=== PATIENT | male | born 1965 | race Caucasian/White ===

== ENCOUNTER 2017-11-19 17:59 | Inpatient (IN) ==
--- NOTE | 2017-11-19 19:25 | Emergency Department Note ---
Disposition Clinical Impression: Pneumonia Disposition: Transfer Short-Term Hosp Referrals: NONE,PCP [Primary Care Provider] - Forms: ED Satisfaction Letter Time of Disposition: 21:59 General Adult HPI - General Chief complaint: ED Upper Respiratory Infection Stated complaint: Upper respiratory Time Seen by Provider: 11/19/17 19:21 Source: patient Limitations: no limitations - History of Present Illness HPI Narrative: Patient presents today with CC of: Pneumonia not improving Patient describes issue began around little over a week ago the patient was seen here because of cough and pneumonia symptoms and was diagnosed with pneumonia started on Augmentin which he is taking and it does not seem to have helped very much he still coughing feeling hot and cold has not been eating well but he has been having some diarrhea. He denies any chest pain. He has not had any vomiting. Denies any earache but does have some nasal congestion. He has been eating but not very much. Had some rice over last 24 hours and has been drinking water he been urinating normally and not having any blood in his stool Pain Scale: 5 - Related Data Home Medications Medication Instructions Recorded Confirmed Metoprolol [Lopressor] 75 mg PO BID 07/25/16 11/19/17 Ipratropium/Albuterol Neb [Duoneb] 3 ml IH Q4H PRN 07/26/16 11/19/17 Atorvastatin [Lipitor] 80 mg PO HS 11/11/17 11/19/17 Previous Rx's Medication Instructions Recorded Fluticasone/Salmeterol [Advair 1 each IH BID #1 blst.w.dev 01/09/15 500-50 Diskus] Albuterol Sulfate [Ventolin Hfa] 8 gm IH Q4-6H PRN #1 hfa.aer.ad 11/28/16 Amoxicillin/Clavulanate [Augmentin] 875 mg PO BIDWM #20 tablet 11/11/17 HYDROcodone BIT/Homatropine LQ 5 mg PO Q6H PRN 3 Days #118 syrup 11/11/17 [Hycodan Syrup] Allergies Allergy/AdvReac Type Severity Reaction Status Date / Time moxifloxacin [From Avelox] Allergy Anaphylaxis Verified 11/19/17 18:32 All systems ED: reviewed and negative except as stated. Review of Systems: As Per HPI Past Medical History - Past Medical History Medical history: Reports: arthritis, asthma, COPD, GERD, hyperlipidemia, hypertension, myocardial infarction Surgical history: Reports: herniorrhaphy, other (Tonsillectomy-adenoidectomy.) Psychiatric history: Reports: anxiety, panic disorder, other - Social History Smoking Status: Current every day smoker Smokeless Tobacco Status: No Alcohol use: Reports: occasionally Drug use: Reports: none Physical Exam I have reviewed initial and available nurse's notes for the patient. The patient 's medications, allergies, and medical history was reviewed. Family, Social & Surg histories were reviewed and are not relevant except as noted above in the history of present illness, or below in the respective specific section. I have reviewed and agree with all vital signs synchronously available in EMR at the time of this dictation. Times documented are the time of computer entry, are not necessarily the time the event occurred. At least 10 systems reviewed with patient or surrogate during physical exam and are otherwise negative. Physical EXAM: General ~ Constitutional: Conscious & cooperative , generally healthy appearance Head: NCAT Eyes: Sclera white , conjunctiva clear , PERRL, non-icteric ENT : L Tympanic membrane normal color and landmarks , translucent R Tympanic membrane normal color and landmarks, translucent Canals are clear without significant drainage , no obstruction or vesicles , pinna and tragus non tender Nose with pink nasal mucosa that is slightly hyperemic with some mucoid discharge present, nares patent, non tender without bleeding Mouth - mucous membrane moist , pink , no lesions , no trismus Neck - no masses , supple , no cervical spinous process tenderness Pharynx - no exudate , no petechia or obvious lesions , no airway obstruction or stridor, some posterior nasal drainage present Hematologic ~ Lymphatic ~ Immunologic: Lymphadenopathy normal , no petechia , Skin color, nails and pulses unremarkable. Heart ~ Chest: Reg rate , nml Rhythm , nl S1/S2 , no MRG Lungs: Breath sounds equal , clear to auscultation bilaterally rhonchi right upper lobe , no rales , no CVA tenderness, speaks in full sentences Gastrointestinal ~ Abd: Soft & non tender , BS + in 4 quads , No HSM or masses , no peritoneal signs GenitoUrinary: Deferred Musculoskeletal ~ Back ~ Extremities: Warm and w/o clubbing , cyanosis , or edema. No point tenderness , good ROM of major joints Neurologic: Cranial nerves grossly intact, good muscle strength , attention good , cooperative , Alert and oriented x4 Psychiatric: Calm , Insight and mood appropriate , Skin: No rashes , good skin turgor , cap refill 2-3 seconds , warm and dry - General Limitations: no limitations General appearance: alert, in no apparent distress Course Vital Signs Temperature 98.3 F 11/19/17 18:28 Pulse Rate 101 11/19/17 18:28 Respiratory Rate 16 11/19/17 18:28 Blood Pressure 133/85 11/19/17 18:28 O2 Sat by Pulse Oximetry 94 11/19/17 18:28 Temperature 98.3 F 11/19/17 18:28 Pulse Rate 101 11/19/17 18:28 Respiratory Rate 16 11/19/17 18:28 Blood Pressure 133/85 11/19/17 18:28 O2 Sat by Pulse Oximetry 94 11/19/17 18:28 Oxygen Delivery Oxygen Delivery Room Air Medical Decision Making - MDM Narrative Medical decision making narrative: MDM: History and physical exam is consistent with - pneumonia, hypokalemia, dehydration DDx included multiple etiologies for the symptoms such as - pneumonia, atypical CP, bronchitis COPD, ACS, Pneumonia, pneumothorax, Gerd, AAA, PE XRAYS: Right upper lobe pneumonia with progressive consolidation throughout the lung. Critical Care: None Condition and evaluation here was discussed in detail. Labwork, and test results were reviewed with the patient. Patient states he had previously had pneumonia while ago and did well on levofloxacin in spite of the fact the he did have a allergy to moxifloxacin. Patient was also found to be hypokalemic and dehydration. He was not having any specific shortness of breath is felt that he was not getting significantly better and was having coughing. His lactate was normal but his white cell count was moderately elevated I discussed with the patient staying in the hospital getting breathing treatments and observation overnight with IV fluids and he was agreeable to this. - Lab Data Result diagrams: 11/19/17 19:43 11/19/17 19:43 Lab Results 11/19/17 11/19/17 11/19/17 Range/Units 19:43 19:43 20:50 WBC 25.8 H (4.3-11.1) K/mcL RBC 4.50 (4.19-5.50) M/mcL Hgb 12.6 L (12.9-16.9) g/dL Hct 36.1 L (37.5-50.1) % MCV 80.2 L (83.0-100.0) fL MCH 28.0 (28.0-33.3) pg MCHC 34.9 (31.6-35.5) g/dL RDW 13.3 (11.5-14.5) % Plt Count 336 (140-400) K/mcL MPV 9.8 (9.4-12.4) fL Immature Gran % 1.4 (0-4) % Seg Neutrophils % 90.3 % Lymphocytes % 3.8 % Monocytes % 4.2 % Eosinophils % 0.1 % Basophils % 0.2 % Neutrophils # 23.3 H (1.6-8.9) K/mcL Lymphocytes # 1.0 (0.6-4.6) K/mcL Monocytes # 1.1 (0.0-1.3) K/mcL Eosinophils # 0.0 (0.0-0.6) K/mcL Basophils # 0.1 (0.0-0.2) K/mcL Platelet Estimate Normal (Normal) ABG pH (7.32-7.45) pH Units ABG pCO2 (35-45) mmHg ABG pO2 (85-104) mmHg ABG HCO3 (21-27) mEq/L ABG Total CO2 (20-26) mEq/L ABG O2 Saturation (95-98) % ABG Base Excess (-2 to 3) mEq/L Sodium 127 L (136-145) mEq/L Potassium 2.9 L (3.5-5.1) mEq/L Chloride 85 L (98-107) mEq/L Carbon Dioxide 31 H (23-29) mEq/L BUN 15 (6-20) mg/dL Creatinine 1.00 (0.70-1.30) mg/dL Est GFR ( Amer) > 60 (> 60) Est GFR (Non-Af Amer) > 60 (> 60) BUN/Creatinine Ratio 15 (6-26) Glucose 121 H (70-105) mg/dL Calculated Osmolality 266 L (280-300) Lactic Acid 1.4 (0.5-2.2) mmol/L Calcium 9.2 (8.6-10.3) mg/dL 11/19/17 Range/Units 20:53 WBC (4.3-11.1) K/mcL RBC (4.19-5.50) M/mcL Hgb (12.9-16.9) g/dL Hct (37.5-50.1) % MCV (83.0-100.0) fL MCH (28.0-33.3) pg MCHC (31.6-35.5) g/dL RDW (11.5-14.5) % Plt Count (140-400) K/mcL MPV (9.4-12.4) fL Immature Gran % (0-4) % Seg Neutrophils % % Lymphocytes % % Monocytes % % Eosinophils % % Basophils % % Neutrophils # (1.6-8.9) K/mcL Lymphocytes # (0.6-4.6) K/mcL Monocytes # (0.0-1.3) K/mcL Eosinophils # (0.0-0.6) K/mcL Basophils # (0.0-0.2) K/mcL Platelet Estimate (Normal) ABG pH 7.55 H (7.32-7.45) pH Units ABG pCO2 33 L (35-45) mmHg ABG pO2 63 L (85-104) mmHg ABG HCO3 29 H (21-27) mEq/L ABG Total CO2 30 H (20-26) mEq/L ABG O2 Saturation 94 L (95-98) % ABG Base Excess 6 H (-2 to 3) mEq/L Sodium (136-145) mEq/L Potassium (3.5-5.1) mEq/L Chloride (98-107) mEq/L Carbon Dioxide (23-29) mEq/L BUN (6-20) mg/dL Creatinine (0.70-1.30) mg/dL Est GFR ( Amer) (> 60) Est GFR (Non-Af Amer) (> 60) BUN/Creatinine Ratio (6-26) Glucose (70-105) mg/dL Calculated Osmolality (280-300) Lactic Acid (0.5-2.2) mmol/L Calcium (8.6-10.3) mg/dL
[2017-11-19 20:11] LABS: Basophils # 0.1 K/mcL (0.0-0.2); Basophils % 0.2 %; Eosinophils % 0.1 %; Hematocrit 36.1 % (37.5-50.1); Hemoglobin 12.6 g/dL (12.9-16.9); Immature Granulocytes % 1.4 % (0-4); Lymphocytes % 3.8 %; Mean Corpuscular HGB Conc 34.9 g/dL (31.6-35.5); Mean Corpuscular Volume 80.2 fL (83.0-100.0); Mean Platelet Volume 9.8 fL (9.4-12.4); Monocytes # 1.1 K/mcL (0.0-1.3); Monocytes % 4.2 %; Neutrophils # 23.3 K/mcL (1.6-8.9); Platelet Count 336 K/mcL (140-400); Red Cell Distribution Width 13.3 % (11.5-14.5); Segmented Neutrophils % 90.3 %
[2017-11-19 20:26] LABS: BUN/Creatinine Ratio 15 (6-26); Blood Urea Nitrogen 15 mg/dL (6-20); Calcium 9.2 mg/dL (8.6-10.3); Carbon Dioxide 31 mEq/L (23-29); Chloride 85 mEq/L (98-107); Glucose 121 mg/dL (70-105); Osmolality,Calculated 266 (280-300); Potassium 2.9 mEq/L (3.5-5.1); Sodium 127 mEq/L (136-145); eGFR For Non-African Americans > 60 (> 60)
[2017-11-19 20:28] LABS: Platelet Estimate Normal (Normal)
[2017-11-19] MEDS ORDERED: Levofloxacin 750 MG/150 ML 750 MG/150 ML BAG IVPB ONE (20:31)
[2017-11-19 20:58] LABS: ABG Base Excess 6 mEq/L (-2 to 3); ABG HCO3 29 mEq/L (21-27); ABG Oxygen Saturation 94 % (95-98); ABG PCO2 33 mmHg (35-45); ABG PH 7.55 pH Units (7.32-7.45); ABG PO2 63 mmHg (85-104); ABG TCO2 30 mEq/L (20-26)
[2017-11-19] MEDS ORDERED: Potassium Citrate 10 MEQ TABLET.ER PO ONE (21:14)
[2017-11-19] MEDS ORDERED: Ipratropium/Albuterol Neb 3 ML IH ONE (21:51)
[2017-11-19] MEDS ORDERED: Naloxone 0.4 MG/ML INJ IVP PRN (22:25)
[2017-11-19] MEDS: 0.9 % Sodium Chloride 1,000 ML IVC SCH (22:37)
[2017-11-19] MEDS: Ipratropium/Albuterol Neb 3 ML IH SCH (22:38)
[2017-11-20] MEDS ORDERED: *HR* HYDROcodone/Acet 5/325 mg TABLET PO ONE (02:21)
[2017-11-20] MEDS: Ipratropium/Albuterol Neb 3 ML IH SCH ×5 (04:11→21:20)
[2017-11-20 04:40] LABS: Basophils % 0.2 %; Eosinophils % 0.1 %; Hemoglobin 12.2 g/dL (12.9-16.9); Immature Granulocytes % 0.7 % (0-4); Lymphocytes # 0.9 K/mcL (0.6-4.6); Lymphocytes % 5.2 %; Mean Corpuscular HGB Conc 34.9 g/dL (31.6-35.5); Mean Corpuscular Hemoglobin 27.8 pg (28.0-33.3); Mean Corpuscular Volume 79.7 fL (83.0-100.0); Mean Platelet Volume 9.5 fL (9.4-12.4); Monocytes # 0.9 K/mcL (0.0-1.3); Monocytes % 5.4 %; Neutrophils # 14.7 K/mcL (1.6-8.9); Platelet Count 325 K/mcL (140-400); Red Blood Count 4.39 M/mcL (4.19-5.50); Red Cell Distribution Width 13.4 % (11.5-14.5); Segmented Neutrophils % 88.4 %
[2017-11-20 04:55] LABS: BUN/Creatinine Ratio 15 (6-26); Blood Urea Nitrogen 11 mg/dL (6-20); Calcium 8.8 mg/dL (8.6-10.3); Carbon Dioxide 31 mEq/L (23-29); Chloride 89 mEq/L (98-107); Glucose 109 mg/dL (70-105); Osmolality,Calculated 266 (280-300); Potassium 3.2 mEq/L (3.5-5.1); Sodium 128 mEq/L (136-145); eGFR For Non-African Americans > 60 (> 60)
[2017-11-20] MEDS: 0.9 % Sodium Chloride 1,000 ML IVC SCH (05:18)
[2017-11-20] MEDS: Budesonide/Formoterol 160/4.5 1 PUFF INH IH SCH ×2 (10:18→21:20)
[2017-11-20] MEDS ORDERED: Isovue-370 500 ML INFUS..BTL IV ONE (12:20)
--- NOTE | 2017-11-20 12:29 | Internal Med History&Physical ---
Date of Encounter: 11/20/17 Time of Encounter: 12:26 Assessment and Plan (1) Pneumonia Current visit: Yes Status: Acute continue IV atb. CT of chest for c/o pain. norco prn ordered. repeat CBC in am. WBC 16.6 today. Continue inhaled breathing treatments. Qualifiers: Pneumonia type: due to unspecified organism Laterality: right Lung location: upper lobe of lung Qualified Code(s): J18.1 - Lobar pneumonia, unspecified organism (2) Hypertension Current visit: Yes Status: Acute Controlled with current medications. Will continue. Qualifiers: Hypertension type: essential hypertension Qualified Code(s): I10 - Essential (primary) hypertension Internal Medicine - H&P: HPI Admitted From: Emergency Dept Plans for Post Hospital Care: Home History of present illness: Mr. Marvin is a 52 year old male presented to the emergency room with a one- week history of cough. Was treated with Augmentin for recent pneumonia. Did not feel like he was getting better. Reports occasional diarrhea, nasal congestion and decreased appetite. Denies fever, chills, nausea or vomiting. States he is having occasional slight pain in right chest area when he is coughing. Chest x-ray shows right upper lobe pneumonia. Was given a dose of Levaquin IV in the emergency room. Will continue. Will order Evans 5 mg every 4 hours as needed for pain. Discussed with patient we would do this for the next 1 to 2 days. Past Med Surg Social Fam HX - Past Medical History Medical history: arthritis, asthma, COPD, GERD, hyperlipidemia, hypertension, myocardial infarction Psychiatric history: anxiety, panic disorder, other - Past Surgical History Surgical History: herniorrhaphy, other Additional surgical history: heart cath (No stents) - Social History Smoking Status: Current every day smoker Packs per day: 1 Smokeless Tobacco Status: No Alcohol use: occasionally Drug use: none - Family History Daughter Adopted: [place]: sohan Jones Age: 28 Family Member Ethnicity: Non- Living Status: Still Living Hx Family Cardiac Disorders: Yes Hx Family Respiratory Disorders: Yes Hx Family Cancer: No Hx Family GI Disorders: No Hx Family Genitourinary Disorders: No Hx Family Endocrine Disorder: No Hx Family Musculoskeletal Disorders: No Hx Family Neuromuscular Disorders: No Hx Family Neurologic Disorders: No Hx Family HEENT Disorders: No Hx Family Autoimmune Disorders: No Hx Family Reproductive Disorders: No Hx Family Psychosocial Disorders: No Hx Family Medical Disorders: No Internal Medicine - H&P: Meds Fluticasone/Salmeterol [Advair 500-50 Diskus] 1 each IH BID #1 blst.w.dev [Rx] Metoprolol [Lopressor] 75 mg PO BID 07/25/16 [History] Ipratropium/Albuterol Neb [Duoneb] 3 ml IH Q4H PRN 07/26/16 [History] Albuterol Sulfate [Ventolin Hfa] 8 gm IH Q4-6H PRN #1 hfa.aer.ad 11/28/16 [Rx] Amoxicillin/Clavulanate [Augmentin] 875 mg PO BIDWM #20 tablet 11/11/17 [Rx] Atorvastatin [Lipitor] 80 mg PO HS 11/11/17 [History] HYDROcodone BIT/Homatropine LQ [Hycodan Syrup] 5 mg PO Q6H PRN 3 Days #118 syrup 11/11/17 [Rx] 3 Allergy/AdvReac Type Severity Reaction Status Date / Time moxifloxacin [From Avelox] Allergy Anaphylaxis Verified 11/19/17 18:32 All Systems PM: A 10-system review of systems was performed and is negative for pertinent findings except as documented above in the HPI. - Constitutional Constitutional: no chills, no fever(s), no night sweats - EENT Eyes: no change in vision, no discharge, no pain, no photophobia Ears: no ear discharge, no ear pain, no tinnitus Nose, mouth and throat: no dysphagia, no nasal discharge, no neck pain, no sore throat - Cardiovascular Cardiovascular ROS IM: no chest pain, no diaphoresis, no dyspnea, no lightheadedness, no palpitations, no syncope - Respiratory Respiratory: cough, pain with cough, no dyspnea, no wheezing, no excessive phlegm production - Gastrointestinal Gastrointestinal: no abdominal pain, no diarrhea, no hematemesis, no hematochezia, no melena, no nausea, no vomiting - Musculoskeletal Musculoskeletal ROS IM: no numbness, no tingling - Integumentary Integumentary IM: no rash, no unusual bruising - Neurological Neurological ROS: no confusion, no convulsions, no focal weakness, no numbness, no tingling, no tremor(s) - Hematologic/Lymphatic Hematologic/Lymphatic: no easy bruising - Constitutional Vitals: Temp Pulse Resp BP Pulse Ox 98.9 F 103 18 127/82 93 11/20/17 11:25 11/20/17 11:25 11/20/17 11:25 11/20/17 11:25 11/20/17 11:25 General appearance: Present: A&O X 3, pleasant, no acute distress, answers questions appropriately - Head Head exam: Present: atraumatic, normocephalic - Eye Eye exam: Present: PERRL, conjuntiva pink, sclera anicteric Pupils: Present: PERRL - Neck Neck exam general surgery: Present: supple, trachea midline. Absent: lymphadenopathy - Respiratory Respiratory exam: Present: rales. Absent: accessory muscle use, rhonchi, wheezes Additional comments: RUL crackles. - Cardiovascular Cardiovascular exam: Present: RRR, +S1, +S2. Absent: diastolic murmur, gallop, rubs, systolic murmur - GI/Abdominal GI/Abdominal exam: Present: normal bowel sounds, soft, no peritoneal signs. Absent: distended, tenderness - Extremities Exam Extremities exam: Present: warm, radial pulses palpable and symmetrical. Absent : calf tenderness, cyanotic, pedal edema - Neurological Exam Neurological exam: Present: CN II-XII intact, oriented X3, no focal deficits. Absent: pronater drift, facial droop, speech deficit - Skin Skin exam: Present: dry, intact Internal Med - H&P Results - Labs CBC & Chem 7: 11/20/17 04:34 11/20/17 04:34 Labs: Short CBC 11/20/17 Range/Units 04:34 WBC 16.6 H (4.3-11.1) K/mcL Hgb 12.2 L (12.9-16.9) g/dL Hct 35.0 L (37.5-50.1) % Plt Count 325 (140-400) K/mcL Neutrophils # 14.7 H (1.6-8.9) K/mcL BMP 11/20/17 04:34 Sodium 128 L Potassium 3.2 L Chloride 89 L Carbon Dioxide 31 H BUN 11 Creatinine 0.73 Glucose 109 H Calcium 8.8 - Impressions ITS Impressions Chest X-Ray 08/26/18 06:00 IMPRESSION: Unchanged relatively dense opacification of the right upper lobe. D/ / Alden Chambers MD / Alden Chambers MD Interpreting Provider: Alden Chambers MD
[2017-11-20] MEDS: Levofloxacin 750 MG/150 ML 750 MG/150 ML BAG IVPB SCH (13:13)
[2017-11-20] MEDS: *HR* HYDROcodone/Acet 5/325 mg TABLET PO PRN ×2 (13:16→21:26)
[2017-11-20] MEDS: *HR* Heparin 5,000 UNIT/ML VIAL SQ SCH (17:37)
[2017-11-21] MEDS: *HR* HYDROcodone/Acet 5/325 mg TABLET PO PRN ×5 (01:38→22:30)
[2017-11-21] MEDS: Albuterol 2.5 MG/3 ML NEBULIZER IH PRN ×3 (01:40→14:00)
[2017-11-21] MEDS: Ipratropium/Albuterol Neb 3 ML IH SCH ×4 (04:30→22:30)
[2017-11-21] MEDS: *HR* Heparin 5,000 UNIT/ML VIAL SQ SCH ×2 (05:37→18:27)
[2017-11-21 05:59] LABS: Basophils % 0.2 %; Eosinophils % 0.1 %; Hematocrit 33.1 % (37.5-50.1); Hemoglobin 11.2 g/dL (12.9-16.9); Immature Granulocytes % 0.9 % (0-4); Lymphocytes # 1.1 K/mcL (0.6-4.6); Mean Corpuscular HGB Conc 33.8 g/dL (31.6-35.5); Mean Corpuscular Hemoglobin 27.3 pg (28.0-33.3); Mean Corpuscular Volume 80.7 fL (83.0-100.0); Mean Platelet Volume 9.7 fL (9.4-12.4); Monocytes % 6.8 %; Neutrophils # 11.7 K/mcL (1.6-8.9); Platelet Count 357 K/mcL (140-400); Red Cell Distribution Width 13.9 % (11.5-14.5)
[2017-11-21 06:14] LABS: BUN/Creatinine Ratio 12 (6-26); Blood Urea Nitrogen 9 mg/dL (6-20); Calcium 8.8 mg/dL (8.6-10.3); Carbon Dioxide 33 mEq/L (23-29); Chloride 91 mEq/L (98-107); Glucose 105 mg/dL (70-105); Osmolality,Calculated 271 (280-300); Potassium 3.3 mEq/L (3.5-5.1); Sodium 131 mEq/L (136-145); eGFR For Non-African Americans > 60 (> 60)
[2017-11-21] MEDS: Levofloxacin 750 MG/150 ML 750 MG/150 ML BAG IVPB SCH (07:50)
[2017-11-21] MEDS: Budesonide/Formoterol 160/4.5 1 PUFF INH IH SCH ×2 (09:44→22:30)
--- NOTE | 2017-11-21 11:51 | Internal Med Progress Note ---
Date of Encounter: 11/21/17 Time of Encounter: 11:48 - Assessment and plan (1) Pneumonia Current Visit: Yes Status: Acute Assessment and plan: continue IV Levaquin and inhaled breathing treatments. improving. Qualifiers: Pneumonia type: due to unspecified organism Laterality: right Lung location: upper lobe of lung Qualified Code(s): J18.1 - Lobar pneumonia, unspecified organism (2) Hypertension Current Visit: Yes Status: Acute Assessment and plan: controlled with current meds. monitor BP Qualifiers: Hypertension type: essential hypertension Qualified Code(s): I10 - Essential (primary) hypertension (3) COPD (chronic obstructive pulmonary disease) Current Visit: Yes Status: Acute Assessment and plan: continue inhaled meds. discussed smoking cessation. Qualifiers: COPD type: chronic bronchitis Chronic bronchitis type: unspecified Qualified Code(s): J42 - Unspecified chronic bronchitis (4) Nicotine addiction Current Visit: Yes Status: Chronic Assessment and plan: discussed smoking cessation. Qualifiers: Nicotine product type: cigarettes Substance use status: unspecified nicotine-induced disorder Qualified Code(s): F17.219 - Nicotine dependence, cigarettes, with unspecified nicotine-induced disorders - Time Spent With Patient less than 15 minutes - Subjective Interval history: resting in bed, states feeling "much beter". starting to cough up phlegm. denies SOB, chest pain, fever, chills, NVD. receiving IV atb. - Constitutional Vitals: Temp Pulse Resp BP Pulse Ox 99.2 F 95 18 120/81 94 11/21/17 11:03 11/21/17 11:03 11/21/17 11:03 11/21/17 11:03 11/21/17 11:03 General appearance: Present: A&O X 3, pleasant, no acute distress, answers questions appropriately - Head Head exam: Present: atraumatic, normocephalic - Eye Eye exam: Present: PERRL, conjuntiva pink, sclera anicteric Pupils: Present: PERRL - Neck Neck exam general surgery: Present: supple, trachea midline. Absent: lymphadenopathy - Respiratory Respiratory exam: Present: rales. Absent: accessory muscle use, rhonchi, wheezes Additional comments: crackles and wheezing to bilat upper lobes and RLL. - Cardiovascular Cardiovascular exam: Present: RRR, +S1, +S2. Absent: diastolic murmur, gallop, rubs, systolic murmur - GI/Abdominal GI/Abdominal exam: Present: normal bowel sounds, soft, no peritoneal signs. Absent: distended, tenderness - Extremities Exam Extremities exam: Present: warm, radial pulses palpable and symmetrical. Absent : calf tenderness, cyanotic, pedal edema - Neurological Exam Neurological exam: Present: CN II-XII intact, oriented X3, no focal deficits. Absent: pronater drift, facial droop, speech deficit - Skin Skin exam: Present: dry, intact Internal Medicine: Result - Labs CBC & Chem 7: 11/21/17 05:40 11/21/17 05:40 Labs: Short CBC 11/21/17 Range/Units 05:40 WBC 13.9 H (4.3-11.1) K/mcL Hgb 11.2 L (12.9-16.9) g/dL Hct 33.1 L (37.5-50.1) % Plt Count 357 (140-400) K/mcL Neutrophils # 11.7 H (1.6-8.9) K/mcL BMP 11/21/17 05:40 Sodium 131 L Potassium 3.3 L Chloride 91 L Carbon Dioxide 33 H BUN 9 Creatinine 0.74 Glucose 105 Calcium 8.8 - ABG Interpretation ABG results: ABG ABG pH 7.55 pH Units (7.32-7.45) H 11/19/17 20:53 ABG pCO2 33 mmHg (35-45) L 11/19/17 20:53 ABG pO2 63 mmHg (85-104) L 11/19/17 20:53 ABG O2 Saturation 94 % (95-98) L 11/19/17 20:53 - Impressions Impressions Chest CT 11/20/17 12:20 IMPRESSION: 1. Right upper lobe pneumonia. 2. Reactive mediastinal and right hilar lymphadenopathy. 3. Underlying centrilobular emphysema. D/ / Jarett Muhammad MD / Jarett Muhammad MD Interpreting Provider: Jarett Muhammad MD Consult Discharge Plan - Plan Referrals: NONE,PCP [Primary Care Provider] -
[2017-11-22] MEDS: Albuterol 2.5 MG/3 ML NEBULIZER IH PRN ×2 (02:38→14:16)
[2017-11-22] MEDS: *HR* HYDROcodone/Acet 5/325 mg TABLET PO PRN ×4 (02:39→20:56)
[2017-11-22] MEDS: Ipratropium/Albuterol Neb 3 ML IH SCH ×4 (04:53→20:59)
[2017-11-22] MEDS: *HR* Heparin 5,000 UNIT/ML VIAL SQ SCH ×2 (04:53→18:06)
[2017-11-22] MEDS: Levofloxacin 750 MG/150 ML 750 MG/150 ML BAG IVPB SCH (08:36)
[2017-11-22] MEDS: Budesonide/Formoterol 160/4.5 1 PUFF INH IH SCH ×2 (08:41→20:59)
[2017-11-22 09:29] LABS: Basophils % 0.3 %; Eosinophils % 0.2 %; Hematocrit 32.6 % (37.5-50.1); Hemoglobin 11.2 g/dL (12.9-16.9); Immature Granulocytes % 0.9 % (0-4); Lymphocytes # 1.1 K/mcL (0.6-4.6); Lymphocytes % 10.3 %; Mean Corpuscular HGB Conc 34.4 g/dL (31.6-35.5); Mean Corpuscular Hemoglobin 27.7 pg (28.0-33.3); Mean Corpuscular Volume 80.7 fL (83.0-100.0); Mean Platelet Volume 9.6 fL (9.4-12.4); Monocytes # 0.9 K/mcL (0.0-1.3); Monocytes % 8.3 %; Neutrophils # 8.4 K/mcL (1.6-8.9); Platelet Count 422 K/mcL (140-400); Red Blood Count 4.04 M/mcL (4.19-5.50); Red Cell Distribution Width 13.7 % (11.5-14.5)
[2017-11-22 09:41] LABS: BUN/Creatinine Ratio 14 (6-26); Blood Urea Nitrogen 9 mg/dL (6-20); Calcium 8.5 mg/dL (8.6-10.3); Carbon Dioxide 27 mEq/L (23-29); Chloride 91 mEq/L (98-107); Glucose 113 mg/dL (70-105); Osmolality,Calculated 261 (280-300); Potassium 3.8 mEq/L (3.5-5.1); Sodium 126 mEq/L (136-145); eGFR For Non-African Americans > 60 (> 60)
--- NOTE | 2017-11-22 10:27 | Internal Med Progress Note ---
Date of Encounter: 11/22/17 Time of Encounter: 10:25 - Assessment and plan (1) Pneumonia Current Visit: Yes Status: Acute Assessment and plan: continue IV Levaquin and inhaled breathing treatments. started having fevers yesterday. blood cultures pending. will add doxycycline. WBC in normal range today. Qualifiers: Pneumonia type: due to unspecified organism Laterality: right Lung location: upper lobe of lung Qualified Code(s): J18.1 - Lobar pneumonia, unspecified organism (2) Hypertension Current Visit: Yes Status: Acute Assessment and plan: controlled with current meds. monitor BP Qualifiers: Hypertension type: essential hypertension Qualified Code(s): I10 - Essential (primary) hypertension (3) COPD (chronic obstructive pulmonary disease) Current Visit: Yes Status: Acute Assessment and plan: continue inhaled meds. discussed smoking cessation. Qualifiers: COPD type: chronic bronchitis Chronic bronchitis type: unspecified Qualified Code(s): J42 - Unspecified chronic bronchitis (4) Nicotine addiction Current Visit: Yes Status: Chronic Assessment and plan: discussed smoking cessation. continue nicotine patch Qualifiers: Nicotine product type: cigarettes Substance use status: unspecified nicotine-induced disorder Qualified Code(s): F17.219 - Nicotine dependence, cigarettes, with unspecified nicotine-induced disorders - Time Spent With Patient 25 - 35 minutes - Subjective Interval history: Resting in bed, states he was able to eat entire breakfast. Having fever since yesterday. Fever relieved with Tylenol. States he is coughing up yellow phlegm. Denies shortness of breath or chest pain. Discussed adding doxycycline. Will continue Levaquin. - Constitutional Vitals: Temp Pulse Resp BP Pulse Ox 100.4 F H 106 20 131/79 94 11/22/17 07:02 11/22/17 07:02 11/22/17 07:02 11/22/17 07:02 11/22/17 09:46 General appearance: Present: A&O X 3, pleasant, no acute distress, answers questions appropriately - Head Head exam: Present: atraumatic, normocephalic - Eye Eye exam: Present: PERRL, conjuntiva pink, sclera anicteric Pupils: Present: PERRL - Neck Neck exam general surgery: Present: supple, trachea midline. Absent: lymphadenopathy - Respiratory Respiratory exam: Present: CTAB, rales, wheezes. Absent: accessory muscle use, rhonchi Additional comments: Crackles scattered to right upper and lower lobe, with occasional expiratory wheeze. Expiratory faint wheezing left upper lobe - Cardiovascular Cardiovascular exam: Present: RRR, +S1, +S2. Absent: diastolic murmur, gallop, rubs, systolic murmur - GI/Abdominal GI/Abdominal exam: Present: normal bowel sounds, soft, no peritoneal signs. Absent: distended, tenderness - Extremities Exam Extremities exam: Present: warm, radial pulses palpable and symmetrical. Absent : calf tenderness, cyanotic, pedal edema - Neurological Exam Neurological exam: Present: CN II-XII intact, oriented X3, no focal deficits. Absent: pronater drift, facial droop, speech deficit - Skin Skin exam: Present: dry, intact Internal Medicine: Result - Labs CBC & Chem 7: 11/22/17 09:07 11/22/17 09:07 Labs: Short CBC 11/22/17 Range/Units 09:07 WBC 10.6 (4.3-11.1) K/mcL Hgb 11.2 L (12.9-16.9) g/dL Hct 32.6 L (37.5-50.1) % Plt Count 422 H (140-400) K/mcL Neutrophils # 8.4 (1.6-8.9) K/mcL BMP 11/22/17 09:07 Sodium 126 L Potassium 3.8 Chloride 91 L Carbon Dioxide 27 BUN 9 Creatinine 0.66 L Glucose 113 H Calcium 8.5 L - ABG Interpretation ABG results: ABG ABG pH 7.55 pH Units (7.32-7.45) H 11/19/17 20:53 ABG pCO2 33 mmHg (35-45) L 11/19/17 20:53 ABG pO2 63 mmHg (85-104) L 11/19/17 20:53 ABG O2 Saturation 94 % (95-98) L 11/19/17 20:53 - VTE Documentation of Mechanical Device: Venous foot pump, device Consult Discharge Plan - Plan Referrals: NONE,PCP [Primary Care Provider] -
[2017-11-22] MEDS: Doxycycline 100 MG CAPSULE PO SCH ×2 (10:53→20:57)
[2017-11-22] MEDS: Nicotine 14 MG PATCH.TD24 TD SCH (11:50)
[2017-11-22] MEDS: HYDROcodone BIT/Homatropine LQ 5 MG/5 ML UDC PO PRN (18:06)
[2017-11-23] MEDS: HYDROcodone BIT/Homatropine LQ 5 MG/5 ML UDC PO PRN ×2 (00:58→20:07)
[2017-11-23] MEDS: *HR* HYDROcodone/Acet 5/325 mg TABLET PO PRN ×4 (00:58→20:06)
[2017-11-23] MEDS: Albuterol 2.5 MG/3 ML NEBULIZER IH PRN ×2 (00:58→18:53)
[2017-11-23] MEDS: Ipratropium/Albuterol Neb 3 ML IH SCH ×4 (05:20→22:11)
[2017-11-23] MEDS: *HR* Heparin 5,000 UNIT/ML VIAL SQ SCH ×2 (05:20→16:57)
[2017-11-23] MEDS: Budesonide/Formoterol 160/4.5 1 PUFF INH IH SCH ×2 (08:08→22:12)
[2017-11-23] MEDS: Nicotine 14 MG PATCH.TD24 TD SCH (08:56)
[2017-11-23] MEDS: Doxycycline 100 MG CAPSULE PO SCH ×2 (08:56→20:05)
[2017-11-23] MEDS: Levofloxacin 750 MG/150 ML 750 MG/150 ML BAG IVPB SCH (08:58)
--- NOTE | 2017-11-23 15:24 | Internal Med Progress Note ---
Date of Encounter: 11/23/17 Time of Encounter: 15:21 - Assessment and plan (1) Pneumonia Current Visit: Yes Status: Acute Assessment and plan: continue IV Levaquin, doxycycline and inhaled breathing treatments. Will repeat chest x-ray. Qualifiers: Pneumonia type: due to unspecified organism Laterality: right Lung location: upper lobe of lung Qualified Code(s): J18.1 - Lobar pneumonia, unspecified organism (2) Hypertension Current Visit: Yes Status: Acute Assessment and plan: controlled with current meds. monitor BP Qualifiers: Hypertension type: essential hypertension Qualified Code(s): I10 - Essential (primary) hypertension (3) COPD (chronic obstructive pulmonary disease) Current Visit: Yes Status: Acute Assessment and plan: continue inhaled meds. discussed smoking cessation. Qualifiers: COPD type: chronic bronchitis Chronic bronchitis type: unspecified Qualified Code(s): J42 - Unspecified chronic bronchitis (4) Nicotine addiction Current Visit: Yes Status: Chronic Assessment and plan: discussed smoking cessation. continue nicotine patch Qualifiers: Nicotine product type: cigarettes Substance use status: unspecified nicotine-induced disorder Qualified Code(s): F17.219 - Nicotine dependence, cigarettes, with unspecified nicotine-induced disorders - Time Spent With Patient less than 15 minutes - Subjective Interval history: Ambulating in hallway without shortness of breath. Continues to have low-grade fever. Fever relieved with Tylenol. States he is coughing up yellow phlegm. Denies shortness of breath or chest pain. Will repeat chest x-ray. Currently taking doxycycline and Levaquin. Maintaining appetite and hydration. - Constitutional Vitals: Temp Pulse Resp BP Pulse Ox 99.6 F 53 16 110/72 91 11/23/17 10:16 11/23/17 10:16 11/23/17 10:16 11/23/17 10:16 11/23/17 10:16 General appearance: Present: A&O X 3, pleasant, no acute distress, answers questions appropriately - Head Head exam: Present: atraumatic, normocephalic - Eye Eye exam: Present: PERRL, conjuntiva pink, sclera anicteric Pupils: Present: PERRL - Neck Neck exam general surgery: Present: supple, trachea midline. Absent: lymphadenopathy - Respiratory Respiratory exam: Present: CTAB, rales, wheezes. Absent: accessory muscle use, rhonchi Additional comments: Crackles and slight expiratory wheeze right upper lobe. - Cardiovascular Cardiovascular exam: Present: RRR, +S1, +S2. Absent: diastolic murmur, gallop, rubs, systolic murmur - GI/Abdominal GI/Abdominal exam: Present: normal bowel sounds, soft, no peritoneal signs. Absent: distended, tenderness - Extremities Exam Extremities exam: Present: warm, radial pulses palpable and symmetrical. Absent : calf tenderness, cyanotic, pedal edema - Neurological Exam Neurological exam: Present: CN II-XII intact, oriented X3, no focal deficits. Absent: pronater drift, facial droop, speech deficit - Skin Skin exam: Present: dry, intact Internal Medicine: Result - Labs CBC & Chem 7: 11/22/17 09:07 11/22/17 09:07 - ABG Interpretation ABG results: ABG ABG pH 7.55 pH Units (7.32-7.45) H 11/19/17 20:53 ABG pCO2 33 mmHg (35-45) L 11/19/17 20:53 ABG pO2 63 mmHg (85-104) L 11/19/17 20:53 ABG O2 Saturation 94 % (95-98) L 11/19/17 20:53 - Impressions Impressions Chest X-Ray 11/23/17 10:45 IMPRESSION: Unchanged right upper lobe pneumonia. D/ / Cameron Crooks MD / Cameron Crooks MD Interpreting Provider: Cameron Crooks MD - VTE Documentation of Mechanical Device: Graduated compression elastic hosiery Consult Discharge Plan - Plan Referrals: NONE,PCP [Primary Care Provider] -
[2017-11-24] MEDS: Albuterol 2.5 MG/3 ML NEBULIZER IH PRN ×2 (02:56→09:01)
[2017-11-24] MEDS: *HR* HYDROcodone/Acet 5/325 mg TABLET PO PRN ×2 (02:56→11:28)
[2017-11-24] MEDS: *HR* Heparin 5,000 UNIT/ML VIAL SQ SCH (06:26)
[2017-11-24] MEDS: Ipratropium/Albuterol Neb 3 ML IH SCH ×3 (06:27→12:12)
[2017-11-24] MEDS: Budesonide/Formoterol 160/4.5 1 PUFF INH IH SCH (09:00)
--- NOTE | 2017-11-24 10:56 | Discharge Summary ---
Date of Encounter: 11/24/17 Time of Encounter: 10:53 - Discharge Diagnosis (1) Pneumonia Priority: Primary Status: Acute Comments: Patient appears relaxed and states that he feels that he has been improved with his breathing status over the past few days. Patient continues with IV antibiotics and will be converted to oral antibiotics for discharge to home. Patient has had a follow-up chest x-ray which continues to show a stable right upper lobe opacity. Patient continues with slight productive cough. Denies any dyspnea or chest discomforts. No hypoxia. Afebrile. Patient will be discharged to home with oral antibiotics and recommendations to follow up with his PCP and repertoire manager after discharge. Qualifiers: Pneumonia type: due to unspecified organism Laterality: right Lung location: upper lobe of lung Qualified Code(s): J18.1 - Lobar pneumonia, unspecified organism (2) Hypertension Priority: Secondary Status: Chronic Comments: Vital signs of been stable. Patient to continue with home medications after discharge. Follow-up with PCP. Qualifiers: Hypertension type: essential hypertension Qualified Code(s): I10 - Essential (primary) hypertension (3) COPD (chronic obstructive pulmonary disease) Priority: Secondary Status: Acute Comments: No acute issues at time of discharge. Patient continues with antibiotics for treatment of right upper lobe pneumonia. Lungs are clear throughout upper mag[place]anes, no wheezes and slightly diminished bases. Productive cough with minimal amount of phlegm received. Afebrile. Patient to continue follow-up with PCP and pulmonology. Continue with home medications and bronchodilators. Qualifiers: COPD type: chronic bronchitis Chronic bronchitis type: unspecified Qualified Code(s): J42 - Unspecified chronic bronchitis Hospital course: Mr. Marvin is a 52 year old male who presented to the emergency room with a one- week history of cough. Patient was seen by PCP and treated with Augmentin for recent pneumonia, but not feel like he was getting better. Reported occasional diarrhea, nasal congestion and decreased appetite. Denied fever, chills, nausea or vomiting. States he was having occasional slight pain in right chest area when he is coughing. Chest x-ray shows right upper lobe pneumonia. Was started on IV Levaquin and doxycycline and over the course of several days he felt that he had progressed with his respiratory status. Patient states productivity of cough decreased and his ease of breath improved. Patient has remained afebrile. Follow-up chest x-ray continued to show a stable right upper lobe opacity. Patient will be discharged home with recommendations follow -up with his PCP and repertoire manager. Patient was given a prescription for oral doxycycline for 7 days and Levaquin for 5 days. Patient instruction given on need to finish his antibiotics and patient states he understands Discharge discussed with: patient Time spent discussing smoking cessation with patient: 3 to 10 minutes - Time Spent with Patient Total time spent providing and/or coordinating discharge services: Less than 30 minutes - Discharge Medications Home Medications: Fluticasone/Salmeterol [Advair 500-50 Diskus] 1 each IH BID #1 blst.w.dev [Rx] Metoprolol [Lopressor] 75 mg PO BID 07/25/16 [History] Ipratropium/Albuterol Neb [Duoneb] 3 ml IH Q4H PRN 07/26/16 [History] Albuterol Sulfate [Ventolin Hfa] 8 gm IH Q4-6H PRN #1 hfa.aer.ad 11/28/16 [Rx] Amoxicillin/Clavulanate [Augmentin] 875 mg PO BIDWM #20 tablet 11/11/17 [Rx] Atorvastatin [Lipitor] 80 mg PO HS 11/11/17 [History] HYDROcodone BIT/Homatropine LQ [Hycodan Syrup] 5 mg PO Q6H PRN 3 Days #118 syrup 11/11/17 [Rx] Allergies/Adverse Reactions: 3 Allergy/AdvReac Type Severity Reaction Status Date / Time moxifloxacin [From Avelox] Allergy Anaphylaxis Verified 11/19/17 18:32 Date of admission: 11/22/17 22:42 Primary care physician: PCP NONE Discharging clinician: Chavo Starr - Constitutional Vitals: Temp Pulse Resp BP Pulse Ox 99.6 F 85 16 124/63 96 11/24/17 07:17 11/24/17 07:17 11/24/17 07:17 11/24/17 07:17 11/24/17 07:17 General appearance: Present: A&O X 3, pleasant, no acute distress, answers questions appropriately - Head Head exam: Present: atraumatic, normocephalic - Eye Eye exam: Present: PERRL, conjuntiva pink, sclera anicteric Pupils: Present: PERRL - Neck Neck exam general surgery: Present: supple, trachea midline. Absent: lymphadenopathy - Respiratory Respiratory exam: Present: CTAB. Absent: accessory muscle use, rales, rhonchi, wheezes Additional comments: Lungs remain clear throughout upper magallanes with no wheezes and noted diminished basilar magallanes. Respiratory effort appears relaxed. No productive cough noted. - Cardiovascular Cardiovascular exam: Present: RRR, +S1, +S2. Absent: diastolic murmur, gallop, rubs, systolic murmur - GI/Abdominal GI/Abdominal exam: Present: normal bowel sounds, soft, no peritoneal signs. Absent: distended, tenderness - Extremities Exam Extremities exam: Present: warm, radial pulses palpable and symmetrical. Absent : calf tenderness, cyanotic, pedal edema - Neurological Exam Neurological exam: Present: CN II-XII intact, oriented X3, no focal deficits. Absent: pronater drift, facial droop, speech deficit - Skin Skin exam: Present: dry, intact - Patient Status Disposition: Home, Self-Care Condition: Good Functional capacity at discharge: independent ambulation Overall status at discharge: patient is progressing back to baseline - Discharge Instructions Follow Up With: NONE,PCP [Primary Care Provider] - - Diet and Activity Activity: resume usual activities as tolerated Diet: advance to your usual diet - VTE Documentation of Mechanical Device: Graduated compression elastic hosiery
[2017-11-24 11:23] VITALS: BP 115/68
[2017-11-24] MEDS: Nicotine 14 MG PATCH.TD24 TD SCH (11:28)
[2017-11-24] MEDS: Doxycycline 100 MG CAPSULE PO SCH (11:28)
== END 2017-11-24 13:00 | disposition home or self-care (01) | DRG 194 ==
LOC: INPGRE 17:59 → EMEROOGRE 17:59 → INPGRE 22:17

== ENCOUNTER 2021-06-22 12:39 | Observation (INO) ==
[2021-06-22] MEDS ORDERED: Morphine Sulfate 2 MG/ML SYRINGE IVP ONE ×2 (12:57→14:46)
[2021-06-22] MEDS ORDERED: Ondansetron 4 MG/2 ML VIAL IVP ONE (12:57)
[2021-06-22] MEDS ORDERED: 0.9 % Sodium Chloride 500 ML IVC ONE (12:57)
[2021-06-22 13:26] LABS: Basophils # 0.1 K/mcL (0.0-0.2); Basophils % 0.6 %; Eosinophils # 0.2 K/mcL (0.0-0.6); Eosinophils % 2.5 %; Hematocrit 43.4 % (37.5-50.1); Immature Granulocytes % 0.8 % (0-4); Lymphocytes % 11.8 %; Mean Corpuscular HGB Conc 32.3 g/dL (31.6-35.5); Mean Corpuscular Hemoglobin 27.5 pg (28.0-33.3); Mean Corpuscular Volume 85.3 fL (83.0-100.0); Mean Platelet Volume 9.3 fL (9.4-12.4); Monocytes # 0.8 K/mcL (0.0-1.3); Monocytes % 8.9 %; Neutrophils # 6.4 K/mcL (1.6-8.9); Platelet Count 207 K/mcL (140-400); Red Blood Count 5.09 M/mcL (4.19-5.50); Red Cell Distribution Width 14.5 % (11.5-14.5); Segmented Neutrophils % 75.4 %; White Blood Count 8.5 K/mcL (4.3-11.1)
[2021-06-22 13:28] LABS: INR 1.1; Prothrombin Time 12.3 Seconds (9.4-12.1)
[2021-06-22 13:29] LABS: BUN/Creatinine Ratio 16 (6-26); Blood Urea Nitrogen 13 mg/dL (6-20); Calcium 8.8 mg/dL (8.6-10.3); Carbon Dioxide 24 mEq/L (23-29); Chloride 103 mEq/L (98-107); Glucose 134 mg/dL (70-105); Osmolality,Calculated 276 (280-300); Potassium 4.2 mEq/L (3.5-5.1); Sodium 132 mEq/L (136-145); eGFR For African Americans > 60 (> 60); eGFR For Non-African Americans > 60 (> 60)
[2021-06-22 13:33] LABS: Troponin I < 0.03 ng/mL (< 0.04)
[2021-06-22] MEDS ORDERED: GI Cocktail 40 ML EACH PO ONE (13:34)
[2021-06-22 14:52] LABS: Albumin 3.7 g/dL (3.5-5.7); Albumin/Globulin Ratio 1.2 (1.1-2.2); Bilirubin,Direct 0.2 mg/dL (0.0-0.2); Bilirubin,Indirect 0.4 mg/dL (0.0-1.0); Bilirubin,Total 0.6 mg/dL (0.3-1.0); Total Protein 6.7 g/dL (6.4-8.9)
[2021-06-22 15:11] LABS: Bilirubin,Urine Negative (Negative); Blood,Urine Negative (Negative); Clarity,Urine Clear (Clear); Color,Urine Yellow (Yellow); Glucose,Urine (UA) Normal (Normal); Ketones,Urine Negative (Negative); Leukocyte Esterase,Urine Negative (Negative); Nitrite,Urine Negative (Negative); PH,Urine 6.5 pH Units (5.0-8.0); Protein,Urine Negative (Neg-Trace); Specific Gravity,Urine 1.015 (1.010-1.025); Urobilinogen,Urine Normal (Normal)
[2021-06-22] MEDS ORDERED: Acetaminophen 325 MG TABLET PO PRN ×2 (15:25→19:36)
[2021-06-22] MEDS ORDERED: *HR* HYDROcodone/Acet 5/325 mg TABLET PO PRN (15:25)
[2021-06-22] MEDS ORDERED: Ondansetron 4 MG/2 ML VIAL IVP PRN ×2 (15:25→19:36)
[2021-06-22] MEDS ORDERED: Melatonin 3 MG TABLET PO PRN ×2 (15:25→19:36)
[2021-06-22] MEDS ORDERED: Naloxone 0.4 MG/ML INJ IVP PRN ×2 (15:25→19:36)
[2021-06-22] MEDS ORDERED: Ipratropium/Albuterol Neb 3 ML IH PRN (15:28)
[2021-06-22] MEDS ORDERED: Nitroglycerin 0.4 MG TAB.SUBL SL PRN ×2 (16:57→19:36)
[2021-06-22] MEDS ORDERED: Mag Hydrox/Al Hydrox/Simeth 30 ML UDC PO PRN ×2 (17:02→19:36)
[2021-06-22] MEDS ORDERED: Famotidine 20 MG/2 ML VIAL IVP ONE (17:02)
[2021-06-22 19:24] LABS: Adenovirus Not Detected (Not Detect); Bordetella Pertussis Not Detected (Not Detect); Chlamydophila pneumoniae Not Detected (Not Detect); Coronavirus 229E Not Detected (Not Detect); Coronavirus HKU1 Not Detected (Not Detect); Coronavirus NL63 Not Detected (Not Detect); Coronavirus OC43 Not Detected (Not Detect); Human Metapneumovirus Not Detected (Not Detect); Human Rhinovirus/Enterovirus Not Detected (Not Detect); Influenza A Subtype 2009 H1 Not Detected (Not Detect); Influenza B Not Detected (Not Detect); Mycoplasma pneumoniae Not Detected (Not Detect); Parainfluenza Virus 1 Not Detected (Not Detect); Parainfluenza Virus 2 Not Detected (Not Detect); Parainfluenza Virus 3 Not Detected (Not Detect); Parainfluenza Virus 4 Not Detected (Not Detect); Respiratory Syncytial Virus Not Detected (Not Detect); SARS-CoV-2 Not Detected (Not Detect)
[2021-06-22] MEDS: *HR* HYDROcodone/Acet 5/325 mg TABLET PO PRN (20:22)
[2021-06-22] MEDS: Gabapentin 300 MG CAPSULE PO SCH (20:51)
[2021-06-22] MEDS: Budesonide/Formoterol 160/4.5 1 PUFF INH IH SCH (21:56)
[2021-06-22] MEDS: Ipratropium/Albuterol Neb 3 ML IH PRN (21:56)
[2021-06-22] MEDS ORDERED: Budesonide/Formoterol 160/4.5 1 PUFF INH IH SCH (22:00)
[2021-06-23] MEDS: Ipratropium/Albuterol Neb 3 ML IH PRN ×5 (02:08→21:49)
[2021-06-23] MEDS: *HR* HYDROcodone/Acet 5/325 mg TABLET PO PRN ×3 (03:52→20:04)
[2021-06-23 05:05] LABS: Hematocrit 42.1 % (37.5-50.1); Hemoglobin 13.4 g/dL (12.9-16.9); Mean Corpuscular HGB Conc 31.8 g/dL (31.6-35.5); Mean Corpuscular Hemoglobin 27.4 pg (28.0-33.3); Mean Corpuscular Volume 86.1 fL (83.0-100.0); Mean Platelet Volume 9.1 fL (9.4-12.4); Platelet Count 175 K/mcL (140-400); Red Blood Count 4.89 M/mcL (4.19-5.50); Red Cell Distribution Width 14.4 % (11.5-14.5); White Blood Count 7.3 K/mcL (4.3-11.1)
[2021-06-23 05:20] LABS: Chol/HDL Ratio 2.4 (0-4.9)
[2021-06-23 05:35] LABS: Alanine Aminotransferase 23 Units/L (7-52); Albumin 3.4 g/dL (3.5-5.7); Albumin/Globulin Ratio 1.3 (1.1-2.2); Alkaline Phosphatase 54 Units/L (34-104); Aspartate Amino Transferase 22 Units/L (13-39); BUN/Creatinine Ratio 16 (6-26); Bilirubin,Total 0.4 mg/dL (0.3-1.0); Blood Urea Nitrogen 13 mg/dL (6-20); Calcium 8.5 mg/dL (8.6-10.3); Carbon Dioxide 25 mEq/L (23-29); Chloride 104 mEq/L (98-107); Globulin 2.7 g/dL (2.4-3.5); Glucose 119 mg/dL (70-105); Osmolality,Calculated 279 (280-300); Potassium 4.5 mEq/L (3.5-5.1); Sodium 134 mEq/L (136-145); Total Protein 6.1 g/dL (6.4-8.9); eGFR For African Americans > 60 (> 60); eGFR For Non-African Americans > 60 (> 60)
[2021-06-23] MEDS: Tiotropium 10 INH DOSE IH SCH (07:45)
[2021-06-23] MEDS: Budesonide/Formoterol 160/4.5 1 PUFF INH IH SCH ×2 (07:46→21:49)
[2021-06-23] MEDS: Gabapentin 300 MG CAPSULE PO SCH ×3 (07:56→20:03)
[2021-06-23] MEDS ORDERED: Nicotine 21 MG PATCH.TD24 TD SCH ×3 (09:00→14:04)
[2021-06-23] MEDS ORDERED: Budesonide/Formoterol 160/4.5 1 PUFF INH IH SCH (10:00)
[2021-06-23] MEDS: Aspirin Enteric Coated 81 MG Tablet PO SCH (13:19)
[2021-06-23] MEDS: *HR* Enoxaparin 40 MG/0.4 ML SYRINGE SQ SCH (13:21)
[2021-06-23] MEDS: predniSONE 20 MG TABLET PO SCH (18:31)
[2021-06-24] MEDS: *HR* Enoxaparin 40 MG/0.4 ML SYRINGE SQ SCH (05:06)
[2021-06-24] MEDS: Ipratropium/Albuterol Neb 3 ML IH PRN ×2 (05:10→10:18)
[2021-06-24] MEDS ORDERED: *HR* Enoxaparin 40 MG/0.4 ML SYRINGE SQ SCH (06:00)
[2021-06-24] MEDS ORDERED: Regadenoson 0.4 MG/5 ML SYRINGE IVP ONE (07:27)
[2021-06-24] MEDS ORDERED: Aspirin Enteric Coated 81 MG Tablet PO SCH (09:00)
[2021-06-24] MEDS: predniSONE 20 MG TABLET PO SCH (09:45)
[2021-06-24] MEDS: Gabapentin 300 MG CAPSULE PO SCH (09:45)
[2021-06-24] MEDS: Aspirin Enteric Coated 81 MG Tablet PO SCH (09:45)
[2021-06-24] MEDS ORDERED: Metoprolol 100 MG TABLET PO SCH (10:06)
[2021-06-24] MEDS: Budesonide/Formoterol 160/4.5 1 PUFF INH IH SCH (10:12)
[2021-06-24] MEDS: Tiotropium 10 INH DOSE IH SCH (10:13)
[2021-06-24 10:22] VITALS: RESP 19; O2SAT 95
[2021-06-24 10:52] VITALS: BP 125/74; PULSE 83; TEMP 98
== END 2021-06-24 13:38 | disposition home or self-care (01) ==
LOC: EMEROOGRE 12:39 → INPGRE 12:39
PROVIDERS: ADMIT Family Medicine; ATTEND Family Medicine